=== PATIENT | male | born 1950 | race Caucasian/White ===

== ENCOUNTER 2024-01-14 21:06 | Emergency (ER) | payer MEDICARE, SELFPAY ==
[2024-01-14 21:15] VITALS: BP 110/62
[2024-01-14 21:32] LABS: % Basophils 0.9 % (0-2); % Eosinophils 2.7 % (0-6); % Immature Granulocytes 0.4 % (0-0.5); % Lymphocytes 24.3 % (20.5-51.1); % Neutrophils 66.7 % (42.2-75.2); Absolute Basophils 0.1 10^3/uL (0-0.2); Absolute Eosinophils 0.2 10^3/uL (0-0.7); Absolute Monocytes 0.4 10^3/uL (0.1-0.6); Absolute Neutrophils 5.4 10^3/uL (1.4-6.5); Hematocrit 45.2 % (39.0-52.0); Hemoglobin 15.8 g/dL (13.0-18.0); Mean Corpuscular Hgb 31.1 pg (27.0-31.0); Mean Platelet Volume 10.9 fL (7.4-10.4); Nucleated Red Blood Cells % 0 % (-); Platelet Count 213 10^3/uL (130-400); Red Blood Cell Count 5.08 10^6/uL (4.70-6.10); Red Cell Dist. Width 13.5 % (11.5-14.5); White Blood Cell Count 8.2 10^3/uL (4.8-10.8)
[2024-01-14 21:51] LABS: ALT (SGPT) 25 U/L (0-50); AST (SGOT) 31 U/L (17-59); Albumin 4.4 g/dl (3.5-5.0); Alkaline Phosphatase 57 U/L (38-126); Blood Urea Nitrogen 28 mg/dl (9-20); Calcium 9.4 mg/dl (8.4-10.2); Carbon Dioxide 27 mmol/L (22-30); Chloride 102 mmol/L (98-107); Glucose 98 mg/dl (70-99); Lipase 146 U/L (23-300); Potassium 3.6 mmol/L (3.5-5.1); Sodium 136 mmol/L (135-145); Total Bilirubin 1.1 mg/dl (0.2-1.3); Total Protein 6.7 g/dl (6.3-8.2); eGFR 58.73
[2024-01-14] MEDS: MORPHINE SULFATE 4 MG IV (23:05)
[2024-01-14] MEDS: ZOFRAN 4 MG IV (23:05)
[2024-01-14 23:23] VITALS: BP 110/65
[2024-01-14 23:24] VITALS: BMI 29.9
[2024-01-14 23:42] LABS: Urine Albumin Negative (Neg - Trace); Urine Bilirubin Negative (Negative); Urine Character Clear (Clear); Urine Color Yellow; Urine Glucose 3+ (Negative); Urine Ketone Negative (Negative); Urine Leukocyte Negative (Negative); Urine Nitrite Negative (Negative); Urine Occult Blood Negative (Negative); Urine Urobilinogen Negative (Neg - 1+)
[2024-01-15] MEDS: TORADOL 15 MG IV (01:15)
[2024-01-15 01:23] VITALS: BP 110/68
--- NOTE | 2024-01-15 02:20 | ED.GENMED ---
History of Present Illness
General
Chief Complaint: Flank Pain
Source: patient and family
Exam Limitations: none
Time Seen by Provider: 01/14/24 22:38
Travel History
Have you had any contact with someone who has COVID-19?: No
Do you have any symptoms of coronavirus? Fever > 100 degrees, chills, cough, shortness of breath, sore throat, loss of taste or smell, muscle aches, or headache?: No
History of Present Illness
History of Present Illness:
73-year-old male who presents with right-sided abdominal and flank pain. Started around 6 PM. Patient reports mild nausea but was able to eat. Patient states the pain was somewhat acute in onset and does wax and wane. Patient is had similar
symptoms in the past few years back. No fevers. No vomiting.
Past History
Past History
ED Past Medical History: Asthma, Cancer (Chordoma), HTN, Hypercholesterolemia and NIDDM
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
Patient has exhibited threatening behavior?: No
Social History
Tobacco: Non-smoker
Alcohol: Daily
Drug: None
Personal:
Phy Exam
Physical Exam
Physical Exam:
CONSTITUTIONAL Patient alert and oriented to person, place and time. Well-appearing. Vital signs reviewed.
HEAD atraumatic, normocephalic.
EYES eyelids normal to inspection, Pupils equally round and reactive to light, Extraocular muscles intact, Conjunctiva normal, Sclera normal.
NECK normal range of motion, Trachea midline, no jugular venous distention.
RESPIRATORY CHEST No respiratory distress noted, Chest expansion equal, Bilateral breath sounds clear.
CARDIOVASCULAR regular rate and rhythm, Heart sounds normal.
ABDOMEN moderate right upper quadrant tenderness, Bowel sounds normal. No distention.
BACK normal inspection, no obvious deformities, mild right CVA tenderness
UPPER EXTREMITY range of motion normal, Motor strength normal, no cyanosis, no edema.
LOWER EXTREMITY range of motion normal, Motor strength normal, no cyanosis, no edema.
NEURO Speech normal, No focal motor deficits, Mcdade coma scale 15, Memory normal, Cranial Nerves intact to screening exam.
SKIN skin warm, dry, and normal in color.
PSYCHIATRIC patient oriented to person place and time, Normal affect.
Course
Orders/Labs/Results
Orders:
Orders
01/14/24 21:18
IV Insert/Care/Rem.- Treatment PRN
01/14/24 21:24
Complete Blood Count/With Diff Urgent
Comprehensive Metabolic Panel Urgent
Lipase Urgent
01/14/24 22:45
CT Abd/pel Without Iv Or Oral Urgent
Comment:
Reason For Exam: R flank pain
Morphine Sulfate 4 mg IV NOW STA
Ondansetron Injectable [Zofran] 4 mg IV NOW STA
01/14/24 23:11
Urinalysis Reflex To Culture Stat
Date Specimen was Collected: 01/14/24
Time Specimen was Collected: 22:45
01/15/24 01:12
Ketorolac [Toradol] 15 mg IV NOW STA
US Abdomen Complete/Upper Urgent
Comment:
Reason For Exam: RUQ pain
Abnormal Lab Results
01/14/24 01/14/24
21:24 23:11
MCH 31.1 H pg
(27.0-31.0)
MPV 10.9 H fL
(7.4-10.4)
BUN 28 H mg/dl
(9-20)
Urine Glucose 3+ A
(Negative)
01/14/24 21:24
01/14/24 21:24
Vital Signs
Initial and Last Documented VS:
Initial Vital Signs
Temp Pulse Resp BP Pulse Ox
98.1 F 75 17 110/62 93
01/14/24 21:15 01/14/24 21:15 01/14/24 21:15 01/14/24 21:15 01/14/24 21:15
Last Documented Vital Signs
Temp Pulse Resp BP Pulse Ox
98.1 F 72 17 110/68 98
01/14/24 21:15 01/15/24 01:23 01/14/24 21:15 01/15/24 01:23 01/15/24 01:23
MDM/Problems Addressed
Differential Diagnosis Includes:
Cholecystitis, nephrolithiasis, colitis, appendicitis, UTI, pyelonephritis
MDM/Problems Addressed:
Cholelithiasis
*Radiology
Radiology exam reviewed: preliminary read by ED provider (No free air noted) and radiology read reviewed
*Pulse Oximetry
Patient hypoxic: no
*Critical Care Note
Total Time (30-74mins, 75-104mins- exclusive of procedures): Not Applicable
Data Reviewed
Review of Other/Old Records Reveals: Discharge Summary (Previous discharge summary from 2020 reviewed. Suspected biliary colic at that time)
Source: patient and family
Further Testing Considered But Not Given:
Consider D-dimer but no clinical concern for PE
Patient Management
Escalation/DeEscalation of care consider admission/obs:
Ultrasound does show suspected sludge and gallstones. Suspect biliary colic as an etiology. Will refer to surgery for follow
ED Attending Note
-
Portions of this chart may have been created with voice recognition software.� Occasional wrong word or��sound alike� substitutions may have occurred due to the inherent limitations of voice recognition software.
Discharge Plan
Departure
Patient Disposition: Home (Routine Discharge)
Date of Disposition: 01/15/24
Time of Disposition: :
Patient with high blood pressure during this ER visit?: No
Discharge Problem:
Cholelithiasis
Instructions: Gallstones
Prescriptions:
No Action
atorvastatin 40 MG tablet
80 mg PO DAILY
topiramate 25 MG tablet
25 mg PO DAILY
chlorthalidone 25 MG tablet
25 mg PO DAILY
trazodone 100 MG tablet
100 mg PO HS
omeprazole 20 MG capsule,delayed release(DR/EC)
20 mg PO DAILY
montelukast 10 MG tablet
10 mg PO DAILY
ramipril 10 MG capsule
10 mg PO DAILY
ezetimibe 10 MG tablet
10 mg PO DAILY
tadalafil 5 MG tablet
5 mg PO DAILY PRN (Reason: ed)
nebivolol 2.5 MG tablet
5 mg PO DAILY
testosterone cypionate [Testone CIK] 200 MG/ML kit
200 mg IM WEEKLY
[id number]-epa-fish oil 1 EACH capsule,delayed release(DR/EC)
1 ea PO DAILY
semaglutide [Ozempic] 0.25 MG/0.2 ML pen injector
0.25 mg SQ MO
amlodipine 5 MG tablet
5 mg PO DAILY
empagliflozin [Jardiance] 10 MG tablet
10 mg PO DAILY
Referrals:
Oscar Bowles MD [Active] -
UNKNOWN - PT DOES,NOT KNOW [Family Provider] -
Activity Restrictions/Additional Instructions:
Please avoid fatty foods. Please see surgery in the next 1 week for follow-up and reevaluation. Drink plenty of fluids. Return immediately for vomiting, worsening pain, fevers or any other concerns
Interventions
Interventions:
*Risk Screen - Suicide Last Done: 01/14/24 21:15
*General Assessment Last Done: 01/14/24 21:15
*Neglect/Abuse Screening Last Done: 01/14/24 21:15
ED- Fall Risk Assessment Last Done: 01/14/24 23:25
*ED COVID-19 Vaccine History Last Done: 01/14/24 21:15
XU-Yjzmbu-Tjwmcmngfj Assessment Last Done: 01/14/24 23:25
ED-Male Genitourinary Assessment Last Done: 01/14/24 23:25
== END 2024-01-15 02:55 | disposition home or self-care (01) ==
LOC: EMR 21:06
PROVIDERS: EMERGENCY PHYSICIAN Emergency Medicine
DX: K80.20 Calculus of gallbladder without cholecystitis without obstruction (principal); J45.909 Unspecified asthma, uncomplicated; I10 Essential (primary) hypertension; E78.00 Pure hypercholesterolemia, unspecified; E11.9 Type 2 diabetes mellitus without complications; Z96.641 Presence of right artificial hip joint
CPT/HCPCS: 99284; 96374; 96375; 74176; 76700; 80053; 81003; 83690; 85025

== ENCOUNTER 2024-02-16 08:43 | Day surgery (SDC) | payer MEDICARE, SELFPAY ==
[2024-02-16] VITALS (10 sets, daily range): BP systolic 146–174; BP diastolic 75–99; BMI 32.1
[2024-02-16] MEDS: NORMOSOL-R 1000 IV (09:25)
[2024-02-16] MEDS: TYLENOL 1000 MG PO (09:25)
[2024-02-16] MEDS: IC GREEN 2.5 MG IV (09:25)
--- NOTE | 2024-02-16 11:40 | OR.RPT ---
Operative Report
Operative Report
Primary Surgeon: Jose
Assisting: Abhay TILLMAN
Pre-op Diagnosis: Biliary colic
Post-op Diagnosis: Chronic cholecystitis
Procedure Performed: Robot assisted laparoscopic cholecystectomy
Anesthesia Type: GETA
Specimen / Cultures: Gallbladder
Estimated Blood Loss: 10cc
Complications: None immediate
Operative Findings: Softly distended elongated gallbladder with thickened wall and moderate posterior wall fibrosis
Date of Surgery:� 02/16/24
Indications: This 73M developed biliary colic with normal liver enzymes and without ductal dilation. Laparoscopic cholecystectomy was elected.
Description of procedure: The patient was placed on the operating table in the supine position. General anesthesia was induced. A time-out was completed verifying correct patient, procedure, site, positioning, and special equipment prior to
beginning this procedure. An orogastric tube was placed. The abdomen was prepped and draped in the usual sterile fashion. A stab incision was made in left upper quadrant and the Veress needle was inserted. Proper position was confirmed by aspiration
and saline meniscus test. The abdomen was insufflated with carbon dioxide to a pressure of 12mmHg. The patient tolerated insufflation well.
A 8mm trocar was then inserted above the umbilicus. The laparoscope was inserted and the abdomen inspected. No injuries from initial trocar placement or Veress needle insertion were noted. Additional 8mm trocars were then inserted in the following
locations: two in the right lower quadrant and to the left of the umbilicus and just above. The abdomen was inspected and no abnormalities were found. The table was placed in the reverse Trendelenburg position with the right side up. The dome of the
gallbladder was grasped with an atraumatic grasper and retracted over the dome of the liver. The infundibulum was then grasped with an atraumatic grasper and retracted toward the right lower quadrant. This maneuver exposed Calot�s triangle. The
peritoneum overlying the gallbladder infundibulum was then incised and the cystic duct and cystic artery identified and circumferentially dissected so that a clear view of the liver was achieved through a window between the cystic duct an cystic
artery. At this time, the only two structures going into the gallbladder were the cystic artery and cystic duct.
The cystic duct was then doubly clipped and divided. The cystic artery was controlled with bipolar and divided. The gallbladder was then dissected from its peritoneal attachments by electrocautery. Hemostasis was assured and the gallbladder was
removed using an endoscopic retrieval bag placed through the umbilical port. The gallbladder was passed off the table as a specimen. The gallbladder fossa was closely inspected and hemostasis was again assured. There was no evidence of bleeding from
the gallbladder fossa or cystic artery or leakage of the bile from the cystic duct stump. The umbilical trocar site was closed at the fascial level with 2-0 PDS. Secondary trocars were removed under direct vision and noted to be hemostatic. The
abdomen was allowed to collapse. The skin was closed with subcuticular sutures of 4-0 monocryl and topical skin adhesive. The orogastric tube was removed.
The patient tolerated the procedure well and was taken to the postanesthesia care unit in stable condition.
[2024-02-16] MEDS: SUBLIMAZE 50 MCG IV ×3 (12:20→12:48)
[2024-02-16] MEDS: ROXICODONE 5 MG PO (14:10)
== END 2024-02-16 14:36 | disposition home or self-care (01) ==
LOC: SDS 08:43
PROVIDERS: ATTENDING PHYSICIAN Surgery
DX: K80.44 Calculus of bile duct with chronic cholecystitis without obstruction (principal)
CPT/HCPCS: 47562; 88304